=== PATIENT | female | born 1965 | race Caucasian/White ===

== ENCOUNTER → 2016-09-20 | Outpatient (CLI) | payer BC ==
--- NOTE | ~2016-09-20 | MR113 ---
[facility] A Service of [facility] & [facility] RADIOLOGY TEXT RESULTS PATIENT: DUSTIN ARNOLD LOCATION: [facility] : 63 UNIT #: [id number] AGE: [address]: Yara Sullivan MD SEX: F ORDER DR: [id number] [facility] [address] [place], [place] [address] [id number] O MR#: [id number] Acc #: [id number] NAME: DUSTIN ARNOLD : 1965 SEX: F STUDY DATE/TIME: 09/20/2016 8:44 UNIT: [facility] ROOM: STUDY DESCRIPTION: MR Lumbar Wo Contrast Attending Physician: Yara Sullivan M.D. Ordering Physician: Yara Sullivan M.D. Primary Care Physician: Primary Care Physician No MRI CENTER REPORT This report is preliminary unless electronic signature is present. EXAM MRI of the lumbar spine without contrast dated 09/20/16. COMPARISON None. HISTORY Patient tripped a week ago while carrying laundry. Left leg pain, which extends down to the foot along with numbness in the lateral aspect of the foot. FINDINGS Multisequence, multiplanar imaging of the lumbar spine was obtained without contrast. Vertebral body heights and alignment are preserved. Degenerative disc disease is seen at multiple levels of the thoracolumbar spine. Conus terminates at L1-2. Signal of conus and cauda equina are within normal limits. T11-12 and T12-L1: Concentric disc bulges noted with likely superimposed central protrusions causing borderline size to mild canal stenosis. Axials were not obtained, as it is a lumbar spine study. L1-2: Concentric disc bulge with superimposed left central to subarticular small protrusion with mild mass effect on the adjacent thecal sac. Mild bilateral facet changes are noted. No significant neural foraminal narrowing. L2-3: Concentric disc bulge with borderline size canal. No significant neural foraminal narrowing. L3-4: Concentric disc bulge which is slightly prominent in bilateral foraminal to extraforaminal regions. There is borderline size canal with mild inferior bilateral neural foraminal encroachment. [facility] A Service of [facility] & [facility] RADIOLOGY TEXT RESULTS PATIENT: DUSTIN ARNOLD [facility] UNIT #: [id number] AGE: [address]: Yara Sullivan MD SEX: F ORDER DR: L4-5: Concentric disc bulge with superimposed left central to right subarticular moderate broad-based protrusion with annular fissure. Xpgy-hf-tcrljetd canal stenosis is seen with mild bilateral lateral recess stenosis and mild inferior bilateral neural foraminal narrowing. L5-S1: Concentric disc bulge with superimposed central to left subarticular small protrusion. It touches bilateral S1 nerve roots, particularly in the left side. Borderline size canal is seen with mild inferior left neural foraminal narrowing inferiorly. Increased T2-signal lesions are noted at the level of S2-3 in the right paramidline aspect, distal to the thecal sac. It measures about 1.1 cm in height and is probably a perineural cyst based on statistics. Incompletely characterized on the current study. IMPRESSION 1. Multilevel degenerative disc disease is seen in the thoracic and the lumbar levels. 2. Relatively worst level is L4-5 followed by L5-S1 and L1-2 with protrusions. 3. Uhdl-yi-zivmoqws canal stenosis at L4-5 with mild bilateral lateral recess and bilateral neural foraminal narrowing. 4. 1.1 cm increased T2-signal lesion is noted at the level of S2 in the right paramidline aspect, distal to the thecal sac. 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 It is incompletely characterized without contrast and nerve sheath tumors cannot be completely excluded. It is, however, lower in the differential consideration. Dictated by... Len Bowens M.D. THIS IS AN ELECTRONICALLY VERIFIED REPORT Len Bowens M.D. at 09/22/2016 5:12 PM CPR/psc TD: 09/21/2016 23:55 JOB #: [id number] MRI CENTER REPORT Page 1 of 1 COPY
== END | disposition home or self-care (01) ==
LOC: CRAD 08:06 → CMRI 08:06
DX: M54.5 Low back pain (principal); R53.1 Weakness; R20.9 Unspecified disturbances of skin sensation; M51.34 Other intervertebral disc degeneration, thoracic region; M51.36 Other intervertebral disc degeneration, lumbar region; M48.06 Spinal stenosis, lumbar region; M51.26 Other intervertebral disc displacement, lumbar region
CPT/HCPCS: 72148